=== PATIENT | female | born 1965 | race Hispanic/Latino ===

== ENCOUNTER → 2019-02-06 | Day surgery (SDC) | payer OTHER ==
--- NOTE | 2019-01-30 12:34 | Diagnostic Imaging Report ---
Exam: KUB - 2 views Clinical History: Pre-admit. Comparison: None. Findings: Nonobstructive bowel gas pattern. No evidence of free intraperitoneal air. Moderate amount of stool within the proximal colon. No evidence of abnormal calcification. No acute bony abnormality. Status post cholecystectomy. Impression: No acute radiographic abnormality. Moderate amount of stool in the proximal colon. Signed by: Dr. Arik Guardado MD on 01/30/2019 12:31 PM
[2019-01-30 12:49] LABS: ANION GAP 12.2 mmol/L (8-16); BLOOD UREA NITROGEN 12 mg/dL (7-26); BUN/CREATININE RATIO 17 (6-25); CALCIUM 9.6 mg/dL (8.4-10.2); CARBON DIOXIDE 30 mmol/L (22-29); CHLORIDE 102 mmol/L (98-107); EST GLOMERULAR FILTRATION RATE > 60 ML/MIN (60-); GLUCOSE 97 mg/dL (74-118); POTASSIUM 4.2 mmol/L (3.5-5.1); SODIUM 140 mmol/L (136-145)
[2019-01-30 13:01] LABS: HEMATOCRIT 39.9 % (34.2-44.1); HEMOGLOBIN 13.1 g/dL (12.0-16.0); RED BLOOD COUNT 4.31 x10e6/uL (3.6-5.1)
[2019-01-30 13:02] LABS: BASOPHILS # (AUTO) 0.1 (0.0-0.1); BASOPHILS % 0.9 % (0.0-1.0); EOSINOPHILS # (AUTO) 0.2 (0.0-0.4); EOSINOPHILS % 1.9 % (0.0-6.0); LYMPHOCYTES # (AUTO) 1.9 (1.0-3.2); LYMPHOCYTES % 22.4 % (18.0-39.1); MEAN CORPUSCULAR HEMOGLOBIN 30.4 pg (28-32); MEAN CORPUSCULAR HGB CONC 32.8 g/dL (31-35); MEAN CORPUSCULAR VOLUME 92.6 fL (81-99); MONOCYTES # (AUTO) 0.6 (0.2-0.8); MONOCYTES % 6.5 % (4.4-11.3); NEUTROPHILS # (AUTO) 5.9 (2.1-6.9); NEUTROPHILS % 67.8 % (38.7-80.0); PLATELET COUNT 412 x10e3/uL (140-360); RED CELL DISTRIBUTION WIDTH 13.4 % (11.7-14.4)
[~2019-02-06] MED LIST: ASPIR 8181 MG PO; CLONAZEPAM1 MG PO; DICYCLOMINE HCL10 MG PO; FENTANYL CITRATE/PF 100MCG/2 ML INJ ONE; FLUTICASONE; FLUTICASONE NASAL; LEXAPRO10 MG PO; LIDOCAINE HCL 2% LOCAL INJ 5 ML SDV VIAL INJ ONE; NEXIUM40 M1 PO; PROPOFOL IV EMULSION 10 MG/ML 20 ML VIAL ONE; VIT D PO
--- OUTSIDE RECORDS SUMMARY | 2019-02-06 11:14 | XMS REPORT ---
Author [facility] Address Unknown Phone Unavailable Care Team Providers Care Clinical Biostatistician Name Role Phone Zachary DOWNS Unavailable Unavailable Problems This patient has no known problems. Allergies, Adverse Reactions, Alerts This patient has no known allergies or adverse reactions. Medications This patient has no known medications. Results Test Description Test Time Test Comments Text Results Atomic Results Result Comments ABDOMEN-1VIEW (KUB) 2019-01-30 12:28:00 [place] [address] Patient Name: PJ MEYERS MR #: [id number] : 1965 Age/Sex: 53/F Req #: [id number] Adm Physician: Ordered by: CESAR DOWNS MD Report #: [id number] Location: OR Room/Bed: Procedure: [id number] DX/ABDOMEN-1VIEW (KUB) Exam Date: Exam Time: REPORT STATUS: Signed Exam: KUB - 2 views Clinical History: Pre-admit. Comparison: None. Findings: Nonobstructive bowel gas pattern. No evidence of free intraperitoneal air. Moderate amount of stool within the proximal colon. No evidence of abnormal calcification. No acute bony abnormality. Status post cholecystectomy. Impression: No acute radiographic abnormality. Moderate amount of stool in the proximal colon. Signed by: Dr. Antoine Saldaña MD on 01/30/2019 12:31 PM Dictated By: ANTOINE SALDAÑA MD [id number] Transcribed By: KIEL on 01/30/19 1231 COPY TO: CESAR DOWNS MD
[2019-02-06 13:00] VITALS: BP 117/79
== END | disposition home or self-care (01) ==
LOC: OR 10:45 → EDBD 12:30
PROVIDERS: ATTEND Internal Medicine
DX: K59.00 Constipation, unspecified (principal); D12.0 Benign neoplasm of cecum; K62.1 Rectal polyp; R19.09 Other intra-abdominal and pelvic swelling, mass and lump; K21.9 Gastro-esophageal reflux disease without esophagitis; J45.909 Unspecified asthma, uncomplicated; F41.9 Anxiety disorder, unspecified; Z88.8 Allergy status to other drugs, medicaments and biological substances; Z01.810 Encounter for preprocedural cardiovascular examination; Z01.812 Encounter for preprocedural laboratory examination; Z79.82 Long term (current) use of aspirin
CPT/HCPCS: 36415; 45380; 45381; 45385; 74018; 80048; 85025; 93005; J2001; J2704